=== PATIENT | male | born 1990 | race Caucasian/White ===

== ENCOUNTER 2017-01-10 17:17 | Emergency (ER) | payer SELFPAY ==
[2017-01-10 19:28] VITALS: BP 123/77
== END 2017-01-10 19:27 | disposition home or self-care (01) ==
LOC: ED 17:17
DX: R07.81 Pleurodynia (principal); M54.2 Cervicalgia; M54.5 Low back pain; Z88.0 Allergy status to penicillin; V43.32XA Unspecified car occupant injured in collision with other type car in nontraffic accident, initial encounter; Y93.89 Activity, other specified; Y99.8 Other external cause status; Y92.89 Other specified places as the place of occurrence of the external cause